=== PATIENT | female | born 1940 | race Caucasian/White ===

== ENCOUNTER 2018-05-13 14:06 | Emergency (ER) | payer MEDICARE, OTHER ==
[~2018-05-13] VITALS: Ht 149.9 cm; Wt 59.1 kg
[~2018-05-13 14:06] MED LIST: ASPI81TA39 PO; CLOP75TA32 PO; DOCU-281 PO; FURO10VI4 PO; LISI-661 PO; METF500T7 PO; METO5SOL3 PO; METO5TAB95 PO; OXYC1TAB PO; VICOT PO; ZOLP5 PO
[2018-05-13 14:23] LABS: GLUCOSE,POINT OF CARE 172 MG/DL (70-110)
[2018-05-13] MEDS ORDERED: ACETAMINOPHEN 500 MG TABLET PO ONE (15:00)
[2018-05-13 15:20] LABS: APPEARANCE,URINE CLEAR (CLEAR); BILIRUBIN,URINE NEGATIVE (NEGATIVE); GLUCOSE, URINE (UA) NEGATIVE (NEGATIVE); KETONES,URINE NEGATIVE (NEGATIVE); LEUKOCYTE ESTERASE ,URINE TRACE (NEGATIVE); NITRATE,URINE NEGATIVE (NEGATIVE); OCCULT BLOOD,URINE NEGATIVE (NEGATIVE); PROTEIN,URINE NEGATIVE (NEGATIVE)
[2018-05-13 15:30] LABS: RBC,URINE 0-2 /HPF (0-2)
[2018-05-13 15:35] LABS: BACTERIA,URINE None Seen /HPF (None Seen)
[2018-05-13 15:36] LABS: SQUAMOUS EPITHELIAL CELL,UR Moderate /LPF (None Seen)
[2018-05-13 15:55] VITALS: BP 115/78
== END 2018-05-13 15:56 | disposition home or self-care (01) ==
LOC: EMS 14:07
DX: M25.512 Pain in left shoulder (principal); G89.29 Other chronic pain; E11.9 Type 2 diabetes mellitus without complications; E78.00 Pure hypercholesterolemia, unspecified; I10 Essential (primary) hypertension; F17.210 Nicotine dependence, cigarettes, uncomplicated; Z87.442 Personal history of urinary calculi; Z90.49 Acquired absence of other specified parts of digestive tract; Z79.82 Long term (current) use of aspirin; Z79.84 Long term (current) use of oral hypoglycemic drugs; Z79.899 Other long term (current) drug therapy
CPT/HCPCS: 87086; 99284